=== PATIENT | male | born 1980 | race Asian ===

== ENCOUNTER 2016-06-11 20:09 | Emergency (ER) | payer SELFPAY ==
[~2016-06-11] VITALS: Ht 175.3 cm; Wt 159.0 kg
[2016-06-11 23:36] VITALS: BP 155/95
== END 2016-06-12 00:40 | disposition home or self-care (01) ==
LOC: EMS 20:12
DX: S90.424A Blister (nonthermal), right lesser toe(s), initial encounter (principal); X58.XXXA Exposure to other specified factors, initial encounter; Y93.89 Activity, other specified; Y92.89 Other specified places as the place of occurrence of the external cause; Y99.8 Other external cause status
CPT/HCPCS: 99283